=== PATIENT | male | born 1960 | race Caucasian/White ===

== ENCOUNTER 2024-11-19 22:35 | Emergency (ER) | payer MEDICARE, MEDICAID, SELFPAY ==
[2024-11-19 22:35] VITALS: BP 154/83; PULSE 77; RESP 19; TEMP 36.6; O2SAT 91
[2024-11-19 22:46] VITALS: PULSE 71; O2SAT 92
[2024-11-19 22:49] VITALS: BMI 31.3
--- NOTE | 2024-11-19 23:00 | PC.NURSE ---
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 Bed in low position and locked with side rails up x 2.
--- NOTE | 2024-11-19 23:08 | PD.EDFALL ---
ED Fall Injury RME/HPI General Chief Complaint: Fall Stated Complaint: HIP PAIN Time Seen by Provider: 11/19/24 23:08 Arrival date/time: 11/19/24 22:35 RME / HPI RME / HPI Narrative: Dr. Medina?s Main ED Evaluation: 64yo male with a history of gout, arthritis BIBA from home presents to the ED for a ground-level fall. 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 Patient states he felt something crack , so he called 911 to come in for evaluation. Patient states he drinks 1-2 beers daily for the last 50 years. Patient denies any illicit drug use. Patient denies any head strikes or loss of consciousness. Patient denies any headache, neck pain, chest pain, abdominal pain or any other associated symptoms. NKA. Related Data Home Medications ?Medication ?Instructions ?Recorded ?Confirmed baclofen 20 mg tablet 20 mg PO TID #0 tabs 09/30/14 doxycycline hyclate 100 mg 100 mg PO BID ##0 09/30/14 tablet,delayed release naproxen sodium 220 mg tablet 220 mg PO BIDWM #0 tabs 09/30/14 (Aleve) Previous Rx's ?Medication ?Instructions ?Recorded acetaminophen 500 mg tablet 1,000 mg (2 x 500 mg) PO Q6H PRN 11/19/24 pain #30 tabs Allergies Allergy/AdvReac Type Severity Reaction Status Date / Time No Known Allergies Allergy Mild Uncoded 09/30/14 10:52 Review of Systems Review of Systems Systems Reviewed: All systems reviewed, normal except as documented Past Medical History Past Medical History CARDIAC: Negative Congestive Heart Failure RESPIRATORY: Negative Chronic Obstructive Pulmonary Disease (COPD) GENITOURINARY: Negative Renal Disease ENDOCRINE: Negative Diabetes Mellitus Type 1 or Diabetes Mellitus Type 2 Social History SMOKING STATUS: Current every day smoker ED Exam Narrative Physical exam: GENERAL APPEARANCE: alert and oriented x 4, well-developed, well-nourished, no acute distress HEENT: Normocephalic, atraumatic; pupils equal, round, reactive to light; EOMI; mucous membranes pink, moist; oropharynx clear NECK: Supple LUNGS: CTABL; no wheezes, no rales, no rhonchi HEART: Regular rate, regular rhythm; normal S1, S2; no murmurs ABDOMEN: non distended; normal BS; soft, no tenderness, no guarding, no rebound; no masses, no organomegaly, no hernia BACK: no CVA tenderness EXTREMITIES: tenderness to palpation of the right hip, no RLE shortening or external rotation; no edema NEUROLOGIC: awake; alert and oriented x4; cranial nerves II-XII grossly intact; no focal sensory or motor deficits PSYCHIATRIC: appropriate mood and affect SKIN: warm, dry, normal color; no rashes Course Quality Measures none Orders Category Date Time Status XR hip RT w pelvis 2-3V Stat Exams 11/19/24 23:08 Completed HYDROcodone*/APAP 5/325 [[place] 5/325] Med 11/19/24 23:10 Discontinued 1 tab PO X1 ONE Ketorolac Inj [Toradol Inj] Med 11/19/24 23:10 Discontinued 30 mg IVP X1 ONE Vital Signs Vital signs: Vital Signs Temperature 97.9 F 11/19/24 22:35 Pulse Rate 77 11/19/24 22:35 Respiratory Rate 19 11/19/24 22:35 Blood Pressure 154/83 H 11/19/24 22:35 Pulse Oximetry (%) 91 L 11/19/24 22:35 Oxygen Delivery Method Room Air 11/19/24 22:35 Fall MDM Narrative MDM Narrative:: Scribe Attestation: 11/19/24 Mckenna Zapata am scribing for and in the presence of Dr. Medina. Patient data External records reviewed:: [facility] previous records (Per chart review, patient has no relevant previous ED visits.) Clinical information provided by:: patient Social determinants that could affect healthcare access:: alcohol use (1-2 beers daily) Patient has the following chronic illnesses:: none How is presenting disease/condition affected by chronic disease/condition?: no chronic disease Evaluation data The following diagnostics were reviewed and interpreted by me:: radiology exam(s) Lab and/or radiology exams considered but not ordered:: none Interpretation Summary: [facility] Report Signed Patient: OPAL SIBLEY [facility]. Record#: [id number] Birthdate: 1960 Age/Sex: 64 / M Location: [facility] Attending Dr: Ordering Physician: Solomon Medina MD Date of Service: 11/19/24 Procedure(s): XR hip RT w pelvis 2-3V Accession Number(s): [id number] cc: Calin Rivera MD; Solomon Medina MD~ Examination:Right hip AP, lateral, AP pelvis 3 views Technique: Hip right AP lateral, AP pelvis, 3 views Exam date and time:November 19, 2024 11:28 PM INDICATIONS: Patient fell today with injury to the hip, hip pain FINDINGS: No right hip fracture or hip dislocation Left hip bones of the pelvis intact IMPRESSION: No acute hip or pelvic fracture If pain persists, consider one to two day follow-up AP film of the pelvis. Dictated By: Calin Rivera MD Signed By: <Electronically signed by Calin Rivera MD in OV> 11/19/24 0565 Medications / Prescriptions Medications or Prescriptions considered but not ordered:: none Medication administrations:: Medication Administration History Discontinued Medications Hydrocodone Bitart/Acetaminophen (Hydrocodone/Apap 5/325 Tablet) 1 tab PO X1 ONE Stop: 11/19/24 23:11 Ketorolac Tromethamine (Ketorolac Inj 30 Mg/Ml Vial) 30 mg IVP X1 ONE Stop: 11/19/24 23:11 see above Consultations Consultation(s) initiated? (list below): No Diagnosis Fall Differential Diagnosis: other (hip fracture, hip dislocation, pelvic ring fracture, contusion) Most likely diagnosis given after review of the tests above:: see clinical impression below Admission Indicated Admission indicated?: not indicated Explain why admission is indicated or not indicated:: Hip and pelvic x-ray is unremarkable. Patient is stable to be discharged home. Admission Request Was there a request for admission?: No Disposition Plan Disposition Plan: Discharge Discharge Attestation Discharge Attestation: The patient and all family members were given an opportunity to ask questions and understood the discharge instructions. Discharge instructions specifically effects, indications for sooner follow up or return to the emergency department, and the expected course of current diagnosis. Patient condition: Stable Discharge Plan Plan Patient Disposition: HOME (Self Care) Discharge Disposition comment: Stable for discharge home Patient condition on transfer: Stable Prescriptions/Referrals Prescriptions/Med Rec: New acetaminophen 500 mg tablet 1,000 mg PO Q6H PRN (Reason: pain) Qty: 30 0RF No Action baclofen 20 MG tablet 20 mg PO TID Qty: 0 naproxen sodium [Aleve] 220 MG tablet 220 mg PO BIDWM Qty: 0 doxycycline hyclate 100 MG tablet,delayed release (DR/EC) 100 mg PO BID Qty: 0 Referrals: [facility] [Provider Group] - In 1 week Problem List Clinical Impression: Ground-level fall, Acute hip pain Patient/Caregiver Discharge Instructions Discharge Activity: activity as tolerated Education Materials: ED Mechanical Fall, ED Hip Contusion, ED Hip Strain Additional Instructions: Please return to the emergency department if you have any worsening or any further medical problems and we will help you. Otherwise you should follow-up with your primary care doctor or in the family [facility] care clinic within the next several days Print Language: Greek Stand Alone Forms: Alisia Award Info., Patient Portal Info Letter
[2024-11-20 00:20] VITALS: TEMP 36.6
[2024-11-20] MEDS: KETOROLAC INJ 30 MG/ML VIAL IVP (00:20)
[2024-11-20] MEDS: HYDROcodone/APAP 5/325 TABLET 1 TAB PO (00:20)
[2024-11-20 01:06] VITALS: BP 143/88; PULSE 70; RESP 19; TEMP 36.6
== END 2024-11-20 01:58 | disposition home or self-care (01) ==
LOC: SERX 11-20 00:36
PROVIDERS: Emergency Provider Emergency Medicine
DX: M25.551 Pain in right hip (principal); M10.9 Gout, unspecified
CPT/HCPCS: 73502; 96374; 99284; J1885; A9270

== ENCOUNTER 2025-01-20 20:16 | Emergency (ER) | payer MEDICARE, MEDICAID, SELFPAY ==
[2025-01-20 20:18] VITALS: BP 160/92; PULSE 84; RESP 17; TEMP 36.8; O2SAT 96
--- NOTE | 2025-01-20 20:25 | XR_ITS ---
EXAMINATION: Ankle, left 3 views . Technique: Ankle AP, oblique, lateral 3 views Date and time of exam: January 20, 2025 2152 hours INDICATIONS injury to ankle today, ankle pain. FINDINGS: Lateral malleolar soft tissue swelling No fracture or ankle dislocation IMPRESSION: No fracture or ankle dislocation
--- NOTE | 2025-01-20 20:25 | XR_ITS ---
Examination: Foot, left, 3 views Technique: AP, oblique, lateral views foot, 3 views Date and time of exam: January 20, 2025 2150 hours INDICATIONS: Injury to foot today, foot pain. FINDINGS: Advanced arthritic change first metatarsophalangeal joint Prominent osteopenia Acute fracture base of the proximal phalanx second digit without significant displacement. IMPRESSION: Acute fracture base of the proximal phalanx second digit without significant displacement
--- NOTE | 2025-01-20 20:25 | PD.EDADULT ---
ED General RME/HPI General Chief complaint: Extremity Injury, Lower Stated complaint: LEFT ANKLE PAIN Time Seen by Provider: 01/20/25 20:24 Arrival date/time: 01/20/25 20:16 CC: Left foot and left ankle pain bilateral knee pain and low back pain HPI status post fall yesterday while using an unsteady walker patient stated his knees just gave out, and he fell did not strike his head denies LOC smokes cigarettes denies alcohol or street drugs. EMS reports stable vital signs although mildly hypertensive patient states he has no primary care provider no medications no allergies is awake alert oriented nontoxic-appearing not in any acute distress stating that he has gout in his feet. EMS report the patient is somewhat disabled the recent of his who we took care of is now delinquent in taking care of his self. Related Data Home Medications ?Medication ?Instructions ?Recorded ?Confirmed baclofen 20 mg tablet 20 mg PO TID #0 tabs 09/30/14 doxycycline hyclate 100 mg 100 mg PO BID ##0 09/30/14 tablet,delayed release naproxen sodium 220 mg tablet 220 mg PO BIDWM #0 tabs 09/30/14 (Aleve) Previous Rx's ?Medication ?Instructions ?Recorded acetaminophen 500 mg tablet 1,000 mg (2 x 500 mg) PO Q6H PRN 11/19/24 pain #30 tabs cyclobenzaprine 7.5 mg tablet 7.5 mg PO TID #14 tabs 01/20/25 meloxicam 7.5 mg tablet 7.5 mg PO QDAY #10 tabs 01/20/25 Allergies Allergy/AdvReac Type Severity Reaction Status Date / Time No Known Allergies Allergy Mild Uncoded 09/30/14 10:52 Review of Systems Review of Systems Narrative Review of Systems: GEN: No fever, no chills, no weight loss EYES: No discharge, no visual changes, no pain HEENT: No ear pain, no congestion, no sore throat PULM: No shortness of breath, no cough, no congestion CV: No chest pain, no dyspnea on exertion, no palpitations GI: No nausea, no vomiting, no diarrhea, no pain, no constipation : No frequency, no urgency, no dysuria MUSC/SKEL: + joint pain, no back pain SKIN: No rash PSYCH: No hallucinations, no depression HEME/LYMPH: No easy bleeding or bruising tendencies NEURO: No weakness, no headache Past Medical History Past Medical History CARDIAC: Negative Congestive Heart Failure RESPIRATORY: Negative Chronic Obstructive Pulmonary Disease (COPD) GENITOURINARY: Negative Renal Disease ENDOCRINE: Negative Diabetes Mellitus Type 1 or Diabetes Mellitus Type 2 Social History SMOKING STATUS: Current every day smoker ED Exam Narrative Physical exam: [General: Mildly disheveled, in mild discomfort but not in any acute distress acute distress Head normocephalic HEENT: Within acceptable limits Neck is supple nontender Chest equal chest rise nontender to palpation Respiratory: Clear to auscultation no wheezes crackles or rubs CV: Rate rhythm is regular no murmurs rubs or clicks Abdomen is distended secondary to body habitus soft nontender no masses positive bowel sounds all 4 quadrants Back: No CVA tenderness no spinous process tenderness from cervical spine thoracic and lumbar spine. Tenderness with palpation of the coccyx bone. Skin: Intact no petechiae rash induration ulceration or crepitus Extremities: Left steam bone press tender to palpation no significant edema no erythema decreased range of motion secondary to pain Refill less than 2 seconds neurosensory intact. Right foot is unremarkable bilateral knees no edema erythema or edema is able to flex and without complication. Moving all extremity against resistance cap refill less than 2 seconds neurosensory intact Neuro: Awake alert oriented x3 Glascow coma 15 no focal deficits] Course Quality Measures none Orders Category Date Time Status XR ankle comp LT min 3V Stat Exams 01/20/25 20:25 Taken XR foot comp LT min 3V Stat Exams 01/20/25 20:25 Taken XR sacrum coccyx min 2V Stat Exams 01/20/25 20:27 Taken oxyCODONE/APAP 5/325 [Percocet 5/325] Med 01/20/25 22:07 Discontinued 1 tab PO X1 ONE Vital Signs Vital signs: Vital Signs Temperature 98.3 F 01/20/25 20:18 Pulse Rate 84 01/20/25 20:18 Respiratory Rate 17 01/20/25 20:18 Blood Pressure 160/92 H 01/20/25 20:18 Pulse Oximetry (%) 96 01/20/25 20:18 Oxygen Delivery Method Room Air 01/20/25 20:18 Discharge Plan Plan Patient Disposition: HOME (Self Care) Patient condition on transfer: Stable Prescriptions/Referrals Prescriptions/Med Rec: New meloxicam 7.5 mg tablet 7.5 mg PO QDAY Qty: 10 0RF cyclobenzaprine 7.5 mg tablet 7.5 mg PO TID Qty: 14 0RF No Action baclofen 20 MG tablet 20 mg PO TID Qty: 0 naproxen sodium [Aleve] 220 MG tablet 220 mg PO BIDWM Qty: 0 doxycycline hyclate 100 MG tablet,delayed release (DR/EC) 100 mg PO BID Qty: 0 acetaminophen 500 mg tablet 1,000 mg PO Q6H PRN (Reason: pain) Qty: 30 0RF Referrals: Hermelindo Amador MD [Physician] - In 1 week No Primary/Family,Physician [Primary Care Provider] - In 1 week Problem List Clinical Impression: Fall, Contusion of foot, Ankle contusion, Contusion of coccyx Patient/Caregiver Discharge Instructions Education Materials: ED Foot Contusion, ED Coccyx or Sacrum Contusion Print Language: Bulgarian Stand Alone Forms: Alisia Award Info., Patient Portal Info Letter PA/WINE SALES REPRESENTATIVE Supervising Physician PA/WINE SALES REPRESENTATIVE Supervising Physician: Thien Espinosa ENP [facility] Clinical Information Provided by patient and EMS Medical Records Reviewed [facility] and EMS Meds/Rx Considered, not Ordered None Labs/Rad/Tests considered, not Ordered None Chronic Illness/Social Conditions which may negatively complicate care or outcome(s)-explain: None or not applicable Lab Interpretation Labs: none Imaging Provider imaging interpretation(s): Ankle and foot x-rays as interpreted by me to the patient is no acute fracture malalignment dislocation Coccyx x-ray, poor quality secondary to a bowel gas shows no acute fracture malalignment or dislocation as interpreted by me. Medication Administration(s) Medication Administration History Discontinued Medications Oxycodone/Acetaminophen (Oxycodone/Apap 5/325 Tablet) 1 tab PO X1 ONE Stop: 01/20/25 22:08 Last Admin: 01/20/25 22:19 Dose: 1 tab Documented By: STARLA
[2025-01-20 20:27] VITALS: PULSE 95; RESP 19; O2SAT 95
--- NOTE | 2025-01-20 20:27 | XR_ITS ---
Examination: Sacrum and coccyx 3 views TECHNIQUE: AP ankle and AP lateral sacrum and coccyx 3 views Date and time: January 20, 2025 1002 hours INDICATIONS: Injury to the sacrum today, sacral pain. FINDINGS: Severe osteopenia No definite acute sacral or coccygeal fracture, detail on the lateral view is reduced IMPRESSION: Limited study No definite acute sacral or coccygeal fracture
[2025-01-20 20:32] VITALS: BMI 26.5
[2025-01-20 22:34] VITALS: BP 163/104; PULSE 74; RESP 18; TEMP 36.7; O2SAT 99
== END 2025-01-20 22:36 | disposition home or self-care (01) ==
PROVIDERS: Emergency Provider Emergency Medicine
DX: S90.02XA Contusion of left ankle, initial encounter (principal); S30.0XXA Contusion of lower back and pelvis, initial encounter; S99.922A Unspecified injury of left foot, initial encounter; W19.XXXA Unspecified fall, initial encounter
CPT/HCPCS: 72220; 73610; 73630; 85025; 99283; A9270